=== PATIENT | male | born 1965 | race Caucasian/White ===

== ENCOUNTER 2021-12-27 15:05 | Emergency (ER) | payer OTHER ==
[2021-12-27 16:37] LABS: HEMOGLOBIN 14.8 gm/dl (14.0-17.5); RED BLOOD COUNT 4.72 M/UL (4.20-5.50); WHITE BLOOD COUNT 11.4 K/UL (4.5-11.0)
[2021-12-27 16:52] LABS: BUN/CREATININE RATIO 23 (0-10)
[2021-12-27] MEDS ORDERED: ZOFRAN 4 MG TAB4 MG PO (19:08)
[2021-12-27] MEDS ORDERED: FLOMAX 0.4 MG0.4 MG PO (19:08)
[2021-12-27] MEDS ORDERED: IBUPROFEN600 MG PO (19:08)
== END 2021-12-27 18:38 | disposition home or self-care (01) ==
LOC: ER1 15:05
PROVIDERS: Physician Assistant
DX: N13.2 Hydronephrosis with renal and ureteral calculous obstruction (principal); Z90.89 Acquired absence of other organs; E78.5 Hyperlipidemia, unspecified; F17.220 Nicotine dependence, chewing tobacco, uncomplicated; Z90.49 Acquired absence of other specified parts of digestive tract; Z88.5 Allergy status to narcotic agent; Z20.822 Contact with and (suspected) exposure to COVID-19
CPT/HCPCS: 0240U; 80053; 83690; 85025; 96374; 96375; 99284; J1170; J2405; Q9967